=== PATIENT | male | born 1990 | race African-American/Black ===

== ENCOUNTER 2020-11-21 05:29 | Emergency (ER) | payer SELFPAY ==
--- NOTE | 2020-11-21 06:07 | EDM.PDOC ---
<Lee Cooper - Last Filed: 11/21/20 08:15> ED HPI GENERAL MEDICAL PROBLEM - General Chief Complaint: Genitourinary Problem Stated Complaint: BLOOD IN URINE Time Seen by Provider: 11/21/20 05:51 - History of Present Illness INITIAL COMMENTS - FREE TEXT/NARRATIVE: 8:15 AM: Signout received at [address] Hdez. This is a 30-year-old gentleman who had urological procedure done secondary to what appears to be a stricture many years ago in [place]. Patient reports that they were never able to identify the root cause of his stricture but he felt it might have been secondary to an injury while he was playing football in high school. Patient presents ER today secondary to decreased urinary output. In the ED, the patient was unable to produce a significant amount of urine. Patient's initial post void residual was approximately 200 cc and the patient appeared comfortable. Patient was given 1 L of NSS as well as having his renal function evaluated. While he was given his 1 L of NS, patient reported that he felt a huge urge to urinate and was having a significant amount of suprapubic abdominal pain and distention. Given the patient's degree of discomfort it was felt that it was likely secondary to significant urinary retention with bladder distention. A Owusu catheter was attempted however the patient was having a significant amount of pain and discomfort and was diaphoretic. During Owusu catheter a small amount of blood was expelled. Patient requested to try to attempt urination once again. Patient went to the bathroom and urinated into the toilet what he reports was a small amount of blood-tinged urine with a small clot followed by a huge amount of clear yellow urine. Patient reports that he felt extremely better and was requesting to be discharged home. Patient did wait for his renal function to return. Patient's renal function was normal. Patient reports that he is leaving tomorrow for [place] and will attempt to contact his urologist. I have discussed with the patient that there is a high likelihood that he might need a Owusu catheter placed back in for recurrence of his urinary retention. Patient will return to the ED if it does happen. I have also instructed him that if he should have the same events happen when he was in [place] prior to seeing his urologist that he should go to the nearest ER and requested Owusu catheter placement. At this time, I believe that the patient is stable for discharge to home and hopefully will be able to urinate without any further difficulty. Reassessment at the time of disposition demonstrates that the patient is in no acute distress. The patient has remained stable throughout the entire ED visit and is without objective evidence for acute process requiring urgent intervention or hospitalization. The patient is stable for discharge, counseling is provided as documented above, discussed symptomatic treatment and specific conditions for return. I have spoken with the patient/caregiver and discussed todays findings, in addition to providing specific details for the plan of care. Questions are answered and there is agreement with the plan. - Related Data Allergies Allergy/AdvReac Type Severity Reaction Status Date / Time No Known Allergies Allergy Verified 11/21/20 05:39 ED ROS GENERAL - Review of Systems Review Of Systems: See Below ED EXAM, GENERAL - Physical Exam Exam: See Below Departure - Departure Time of Disposition: 08:19 Disposition: Home, Self-Care 01 Condition: Good Clinical Impression: Retention of urine - Discharge Information Instructions: Acute Urinary Retention, Male Referrals: PCP,Not In Area [Primary Care Provider] - Forms: ED Department Discharge Additional Instructions: You were seen and evaluated in the ER today secondary to urinary retention that appears to be most likely secondary to urethral obstruction. At this time, it appears that you are urinating well again. Since you are able to urinate on your own I do not feel that a catheter at this time will benefit you. If you should have difficulty urinating again, which is a definite possibility, please return to the ER immediately that we can place a Owusu catheter and give you some relief. Please make sure that you follow-up with your urologist in [place] for reevaluation by them. The following information is given to patients seen in the emergency department who are being discharged to home. This information is to outline your options for follow-up care. We provide all patients seen in our emergency department with a follow-up referral. The need for follow-up, as well as the timing and circumstances, are variable depending upon the specifics of your emergency department visit. If you don't have a primary care physician on staff, we will provide you with a referral. We always advise you to contact your personal physician following an emergency department visit to inform them of the circumstance of the visit and for follow-up with them and/or the need for any referrals to a consulting specialist. The emergency department will also refer you to a specialist when appropriate. This referral assures that you have the opportunity for follow-up care with a specialist. All of these measure are taken in an effort to provide you with optimal care, which includes your follow-up. Under all circumstances we always encourage you to contact your private physician who remains a resource for coordinating your care. When calling for follow-up care, please make the office aware that this follow-up is from your recent emergency room visit. If for any reason you are refused follow-up, please contact the [facility] Emergency Department at and asked to speak to the emergency department charge nurse. 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 He denies any pain with urination, increased urgency or incontinence. He states that normally when he wakes up in the morning he has a bowel movement and urinates at the same time. He states that this morning he did not urinate and this scared him. He came to the emergency department because he is concerned that there is scar tissue not allowing him to urinate again. He states that all these procedures were done in [place]. He denies any fever, chills, abdominal pain, nausea or vomiting. He denies any testicular pain or swelling. REVIEW OF SYSTEMS: Constitutional: Denies fever, chills. Eyes: Denies eye pain Ears, Nose, Mouth, & Throat: Denies earache Cardiovascular: Denies chest pain Respiratory: Denies shortness of breath Gastrointestinal: Denies Nausea, vomiting, diarrhea, hematochezia. Genitourinary: Positive for urinary retention. Denies hematuria, dysuria, penile discharge, testicular pain Skin:Denies a rash MSK: Denies joint pain Neurological: Denies blurred vision Psychiatric: Denies depression PAST MEDICAL HISTORY: As per history of present illness and as reviewed below otherwise noncontributory. SURGICAL HISTORY: As per history of present illness and as reviewed below otherwise noncontributory. SOCIAL HISTORY: As per history of present illness and as reviewed below otherwise noncontributory. FAMILY HISTORY: As per history of present illness and as reviewed below otherwise noncontributory. EXAMINATION OF ORGAN SYSTEMS/BODY AREAS: Constitutional: Blood pressure is 171/100, heart rate 91, respiratory rate 18 with an oxygen saturation 97% on room air. Temperature 36.2 General: Overall well-appearing man who is in no acute distress Psychiatric: Appropriate mood and affect. Eyes: No scleral icterus or conjunctival erythema ENMT: Moist mucous membranes. No pharyngeal erythema Cardiovascular: Regular, rate, and rhythm. No gallops, murmurs, or rubs. Bilateral upper extremity pulses symmetric and intact. No peripheral edema. No JVD. Respiratory: Lungs clear to auscultation bilaterally. No wheezes, rales, or rhonchi. Gastrointestinal: Soft, non-tender, non-distended. Normoactive bowel sounds Genitourinary: No suprapubic tenderness no CVA tenderness. No palpable mass in the suprapubic region. Musculoskeletal: Normal range of motion. Skin: No lesions or abrasions. 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 We did perform a bedside bladder scan that revealed 280 cc of urine. At this time I did discuss with patient that I would like to provide him with a 1 L bolus to see if the patient is able to urinate on his own. He was amenable to this plan. [facility] pending reevaluation and disposition. DISPOSITION: [facility] pending reevaluation and disposition. CONDITION: Fair PROCEDURES: None Dwayne Bryan M.D. Past Medical History HEENT History: Reports: None Cardiovascular History: Reports: Hypertension Respiratory History: Reports: None Gastrointestinal History: Reports: None Genitourinary History: Reports: None Musculoskeletal History: Reports: None Neurological History: Reports: None Psychiatric History: Reports: None Hematologic History: Reports: None Oncologic (Cancer) History: Reports: None Dermatologic History: Reports: None - Infectious Disease History Infectious Disease History: Reports: Chicken Pox - Past Surgical History Head Surgeries/Procedures: Reports: None Cardiovascular Surgical History: Reports: None Male Surgical History: Reports: Other (See Below) Other Male Surgeries/Procedures: uretheral repair Social & Family History - Family History Family Medical History: No Pertinent Family History - Tobacco Use Tobacco Use Status *Q: Never Tobacco User - Caffeine Use Caffeine Use: Reports: Tea - Recreational Drug Use Recreational Drug Use: No ED ROS GENERAL - Review of Systems Review Of Systems: See Below ED EXAM, GENERAL - Physical Exam Exam: See Below Course - Vital Signs Last Recorded V/S: Last Vital Signs Temp 36.7 C 11/21/20 08:27 Pulse 88 11/21/20 08:27 Resp 18 11/21/20 08:27 BP 148/72 H 11/21/20 08:27 Pulse Ox 98 11/21/20 08:27 - Orders/Labs/Meds Labs: Laboratory Tests 11/21/20 11/21/20 Range/Units 06:50 07:05 Sodium 137 (136-148) mmol/L Potassium 4.1 (3.5-5.1) mmol/L Chloride 104 (98-107) mmol/L Carbon Dioxide 26.1 (21.0-32.0) mmol/L BUN 13 (7.0-18.0) mg/dL Creatinine 1.0 (0.8-1.3) mg/dL Est Cr Clr Drug Dosing 123.30 mL/min Estimated GFR (MDRD) > 60.0 ml/min Glucose 118 H (74-106) mg/dL Calcium 9.0 (8.5-10.1) mg/dL Urine Color YELLOW Urine Appearance CLEAR Urine pH 6.0 (5.0-8.0) Ur Specific [place] 1.015 (1.001-1.035) Urine Protein 30 H (NEGATIVE) mg/dL Urine Glucose (UA) NEGATIVE (NEGATIVE) mg/dL Urine Ketones NEGATIVE (NEGATIVE) mg/dL Urine Occult Blood MODERATE H (NEGATIVE) Urine Nitrite NEGATIVE (NEGATIVE) Urine Bilirubin NEGATIVE (NEGATIVE) Urine Urobilinogen 0.2 (<2.0) EU/dL Ur Leukocyte Esterase NEGATIVE (NEGATIVE) Urine RBC 2-5 (0-2/HPF) Urine WBC 1-4 (0-5/HPF) Ur Epithelial Cells FEW (NONE-FEW) Urine Bacteria FEW (NEGATIVE) Urine Mucus LIGHT (NONE-MOD) Meds: Medications Discontinued Medications Generic Name Dose Route Start Last Admin Trade Name Gaurangq PRN Reason Stop Dose Admin Lactated Ringer's 1,000 mls @ 999 mls/hr 11/21/20 06:45 11/21/20 06:49 Ringers, Lactated IV 999 mls/hr ASDIRECTED SHABNAM Administration Lidocaine HCl Confirm 11/21/20 07:39 11/21/20 08:03 Lidocaine 2% Viscous Solution 15 Ml Cup Administered 11/21/20 07:40 Not Given Dose 15 ml .ROUTE .STK-MED ONE Sepsis Event Note (ED) - Evaluation Sepsis Screening Result: No Definite Risk
[2020-11-21] MEDS ORDERED: Lactated Ringers 1,000 ML IV SCH (06:45)
[2020-11-21 07:23] LABS: BLOOD UREA NITROGEN,BUN 13 mg/dL (7.0-18.0); CARBON DIOXIDE,CO2 26.1 mmol/L (21.0-32.0); CHLORIDE,CL 104 mmol/L (98-107); GLUCOSE RANDOM 118 mg/dL (74-106); POTASSIUM,K 4.1 mmol/L (3.5-5.1); SODIUM,NA 137 mmol/L (136-148)
[2020-11-21] MEDS ORDERED: Lidocaine 2% Viscous Solution 15 ML Cup ONE (07:39)
== END 2020-11-21 08:28 | disposition home or self-care (01) ==
LOC: MW.ED 05:29
DX: R33.9 Retention of urine, unspecified (principal)
CPT/HCPCS: 36415; 80048; 81001; 99284; J7120